=== PATIENT | female | born 1990 | race Caucasian/White ===

== ENCOUNTER → 2017-06-21 | Outpatient (CLI) | payer OTHER ==
--- NOTE | 2017-06-21 09:03 | DIAGNOSTIC IMAGING REPORT ---
ABDOMINAL ULTRASOUND COMPLETE HISTORY: Generalized abdominal pain. Bloating.. COMPARISON: None. FINDINGS: Pancreas: The pancreas demonstrates a normal echotexture. Liver: Unremarkable. Gallbladder: No gallbladder wall thickening. No gallstones. CBD: 3 mm. Kidneys: No hydronephrosis. Spleen: Mildly enlarged measuring 14 cm in length. Aorta: Normal in caliber. IVC: Patent. IMPRESSION: Mild splenomegaly. Electronically signed by: Timur Howell M.D. 06/21/2017 9:02 AM Dictated Date/Time: 06/21/2017 9:00 AM
== END | disposition home or self-care (01) ==
LOC: C.ULTR 07:56
PROVIDERS: ATTEND Internal Medicine Gastroenterology
DX: R14.0 Abdominal distension (gaseous) (principal); R19.7 Diarrhea, unspecified; K62.5 Hemorrhage of anus and rectum

== ENCOUNTER 2019-04-01 17:01 | Observation (INO) ==
[2019-04-01] MEDS ORDERED: SODIUM CHLORIDE 0.9% 1000ML 1,000 ML IV SCH (19:00)
--- NOTE | 2019-04-01 19:11 | Emergency Department Note ---
ED Provider Note CHIEF COMPLAINT: Chest pain, palpitations, near syncope HISTORY OF PRESENTING ILLNESS: This is a 28-year-old female who presents to the emergency department by private vehicle with complaint of palpitations, shortness of breath and near syncope. Patient states that she had some periods of lightheadedness yesterday, but she did not pass out. Today at 4 PM while sitting in a meeting at work she developed a sudden onset of feeling like her h eart was racing, she states she got tunnel vision and felt lightheaded like she was about to pass out. She has been having intermittent periods of feeling like this and coming close to passing out several times. She states that she feels her palpitations have somewhat improved, but she is still feeling lightheaded. She states that she has been feeling shortness of breath with the episode and al so had some pain in her right chest and shoulder area and around her breast that she describes as tightness, seems to come and go, and currently rates it as 4/10. She denies any nausea or vomiting, abdominal pain, back pain, urinary complaints, or unusual rash. She notes that she has been having some similar symptoms over the past several months that were attributed to stress and panic attacks that were attributed to her control. She states she stopped the control about a month ago and feels that the panic attacks did improve. She states her symptoms today were much worse than any of her previous episodes, and she never felt like she was going to pass out before. She denies any recent travel, leg pain or swelling, cough or hemoptysis, or history of blood clots. She does note that she had some leg cramping about a month ago and she had an ultrasound which was negative for blood clot. She has been off of her control for about a month. She denies any previous history of anxiety or panic disorders. REVIEW OF SYSTEMS: A complete 10 point review of systems was reviewed with the patient with pertinent positives and negatives as per history of present illness. All else were negative. PAST MEDICAL HISTORY: No significant past medical or surgical history SOCIAL HISTORY: Lives at home with her , she denies tobacco use, alcohol or recreational drug use ALLERGIES: No known allergies PHYSICAL EXAM: CONSTITUTIONAL: Pleasant and cooperative. No acute distress. Mildly dehydrated, but otherwise well appearing and well nourished. HEENT: Normocephalic, atraumatic. PERRL, EOMI. Pharynx normal. Tacky mucous membranes. NECK: Supple, full active range of motion without discomfort. No cervical adenopathy. RESPIRATORY: Clear to auscultation bilaterally with no wheezing, crackles, rhonchi or stridor. Equal expansion bilaterally. CARDIOVASCULAR: Regular rate and rhythm with no murmurs, rubs or gallops. Normal peripheral perfusion, 2+ distal pulses in all 4 extremities. No pitting edema. GASTROINTESTINAL: Soft, nontender, nondistended. No palpable masses or HSM. Bowel sounds present in all quadrants. No CVA tenderness bilaterally. MUSCULOSKELETAL: No calf tenderness or swelling, negative Homans sign bilaterally. Full range of motion of all joints without discomfort. INTEGUMENTARY: No rash or other significant dermatologic conditions noted. NEUROLOGIC: Alert and oriented X 4 with normal affect. Normal strength and sensation in all 4 extremities. Normal speech. Normal gait observed. ED COURSE AND MEDICAL DECISION MAKING: CC: Patient presenting with complaint of chest pain, palpitations, near syncope DIFFERENTIAL DIAGNOSIS: Includes, but not limited to cardiac dysrhythmia, acute coronary syndrome, pulmonary embolism, pneumothorax, pericarditis, myocarditis, anxiety, pneumonia, electrolyte abnormality, Lyme disease/carditis, among others. INTERPRETATION OF LABS: Leukocytosis with left shift, no anemia, normal platelets, no significant electrolyte abnormalities, normal renal function, normal liver enzymes. Negative troponin. Slightly elevated d-dimer. Elevated ESR with a normal CRP. Negative serum . TSH within normal limits. UA consistent with mild dehydration, otherwise negative. Lyme IgG/IgM negative. IMAGING: SINGLE VIEW CHEST CLINICAL HISTORY: Atypical chest pain. Dyspnea. FINDINGS: An AP, portable, upright chest radiograph is obtained. No prior studies are available for comparison at the time of dictation. The cardiomediastinal silhouette is unremarkable. The lungs and pleural spaces are clear. No pneumothorax is seen. The bony thorax is grossly intact. IMPRESSION: No active disease in the chest. ----- CT ANGIOGRAM OF THE CHEST CLINICAL HISTORY: Dyspnea. Elevated d-dimer. COMPARISON STUDY: Chest x-ray dated 04/01/2019. TECHNIQUE: Following the IV administration of 64 cc of Optiray 320, CT angiogram of the chest was performed from the upper abdomen to the thoracic inlet ut ilizing the pulmonary embolus protocol. Images are reviewed in the axial, sagittal, and coronal planes. 3-D MIPS images are created and assessed. IV contrast was administered without complication. A dose lowering technique was utilized adhering to the principles of ALARA. CT DOSE: 383.89 mGy.cm FINDINGS: Thyroid: Imaged portions of the thyroid gland are normal in size and attenuation. Thoracic aorta: The thoracic aorta is normal in caliber and demonstrates standard 3-vessel arch anatomy. No dissection is seen. Pulmonary vasculature: The pulmonary trunk is normal in caliber. There are no filling defects identified in main, lobar, or proximal segmental pulmonary branches to suggest pulmonary embolus. Evaluation of the peripheral vessels is degraded by suboptimal contrast opacification. Heart: The heart is normal in size and without pericardial effusion. Lungs and pleural spaces: The lungs and pleural spaces are clear noting mild bibasilar atelectasis. The trachea and central airways are patent. Mediastinum: Residual thymic tissue is noted in the anterior mediastinum. There is no mediastinal lymphadenopathy. Christin: Clear. Axillae: There is no axillary lymphadenopathy. Upper abdomen: Partially visualized upper abdominal viscera is within normal limits. Skeletal structures: No lytic or blastic bony lesions are seen. IMPRESSION: 1. There is no evidence of pulmonary embolus in the main, lobar, or proximal segmental pulmonary arteries. 2. The lungs are clear. EKG: Shows sinus rhythm with sinus arrhythmia and first-degree AV block, with a rate of 86 bpm, normal QRS, no ST or T wave abnormalities, no ectopy by my interpretation. No previous EKG available for comparison. MEDICATION RECONCILIATION: I attest that I have personally reviewed the patient's current medication list. INITIAL VITAL SIGNS REVIEW: I reviewed the patient's initial vital signs and interpret them as follows: T: Afebrile; BP: Hypertensive; HR: Tachycardic; RR: Within normal limits; Pulse Ox: Within normal limits on room air. Blood pressure screening: The patient was found to have an elevated blood pressure and was referred to the inpatient team for further management. MDM SUMMARY: Patient was evaluated at bedside, history and physical exam performed. Patient is alert and oriented, in no acute distress, but appears to feel unwell, laying flat in the stretcher. Patient is noted to be mildly tachycardic, but vital signs are otherwise stable. She is not febrile. She does appear mildly dehydrated clinically. Lungs are clear, heart sounds normal with normal distal pulses in all 4 extremities. No calf swelling or tenderness. EKG reviewed at bedside, noting first-degree AV block. No acute ischemic changes. Orders were placed at bedside for labs, d-dimer and troponin, TSH, Lyme, IV fluid bolus for hydration, chest x-ray to evaluate for cardiopulmonary disorder. Patient discussed with Dr. Topete, who agrees with my assessment, plan, and disposition. Labs and imaging reviewed as above, labs are notable for a leukocytosis with left shift, this is of unclear etiology. ESR and CRP added, ESR is elevated and CRP is normal. Lyme is negative. Troponin is negative. D-dimer is mildly elevated, therefore a CT was ordered. Chest x-ray is clear. CTA of the chest was negative for pulmonary embolus or any other acute abnormality. Patient has been noted to demonstrate possible developing second-degree AV block, with frequent dropped beats, concerning for possible type II. Given the patient's EKG changes, intermittent chest pain and near syncope, I felt that she warranted hospital admission for further observation and evaluation of her symptoms. I did speak on the phone with Dr. Ingram, cardiology, regarding the patient's symptoms and EKG findings. He did not feel the patient warranted an emergent echocardiogram, but felt it was reasonable for her to be monitored and have this performed tomorrow. I spoke with Dr. Schafer, [facility] Hospitalist, who agrees to evaluate the patient for admission/observation. Patient reassessed multiple times throughout ED stay, she has remained hemodynamically stable and her tachycardia is improved after IV fluids. She continues to complain of intermittent chest tightness, but is currently comfortable. The patient and her were updated on all results and plan for admission, all questions were answered to the best of my ability at this time. They verbalized understanding and were agreeable to this plan. Patient was stable at time of admission. The chart was completed utilizing [employer] Speech voice recognition software. Grammatical errors, random word insertions, pronoun errors, and incomplete sentences are an occasional consequence of this system due to software limitations, ambient noise, and hardware issues. Any formal questions or concerns about the content, text, or information contained within the body of this dictation should be directly addressed to the nurse practitioner for cla rification. Impression & Plan Palpitations, Chest pain, Near syncope, AV block Past Med/Surg History Social History Feels Safe at Home: Yes Smoking Status: Never smoker Results & Data Vital Signs Vital Signs - 24 hr 04/01/19 17:11 04/01/19 19:45 04/01/19 20:42 Temperature 36.4 C L Temperature Source Oral Pulse Rate 100 H Pulse Rate [Apical] 90 90 Respiratory Rate 18 18 16 Respiratory Effort / Characteristics Non-Labored Respiratory Depth Normal Normal Blood Pressure 153/80 H Blood Pressure [Right Arm] 145/99 H 139/96 Blood Pressure Mean 104 Blood Pressure Mean [Right Arm] 114 110 Blood Pressure Position Sitting Pulse Oximetry 98 100 100 Oxygen Delivery Method Room Air Room Air Sepsis Recent Fever Within 48 Hours No Sepsis New/Unexplained Change in Mental Status No Sepsis Action Taken by Nursing No Action Required 04/01/19 22:47 04/02/19 00:00 04/02/19 01:00 Temperature Temperature Source Pulse Rate Pulse Rate [Apical] 84 89 81 Respiratory Rate 20 18 18 Respiratory Effort / Characteristics Respiratory Depth Normal Blood Pressure Blood Pressure [Right Arm] 184/94 H 160/91 H 135/84 Blood Pressure Mean Blood Pressure Mean [Right Arm] 124 114 101 Blood Pressure Position Pulse Oximetry 98 98 99 Oxygen Delivery Method Room Air Room Air Sepsis Recent Fever Within 48 Hours Sepsis New/Unexplained Change in Mental Status Sepsis Action Taken by Nursing Laboratory Data Result diagrams: 04/01/19 19:02 04/01/19 19:02 Lab Results 04/01/19 04/01/19 04/01/19 Range/Units 19:02 19:02 19:02 WBC 16.98 H (4.8-10.8) K/uL RBC 4.80 (4.2-5.4) M/uL Hgb 13.9 (12.0-16.0) g/dL Hct 40.1 (37-47) % MCV 83.5 (80-100) fL MCH 29.0 (25-34) pg MCHC 34.7 (32-36) g/dL RDW Std Deviation 38.7 (36.4-46.3) fL RDW Coeff of Mattie 12.9 (11.5-14.5) % Plt Count 392 (130-400) K/uL MPV 8.9 (7.4-10.4) fL Immature Gran % (Auto) 0.5 % Neut % (Auto) 75.0 % Lymph % (Auto) 19.4 % [place] % (Auto) 4.8 % Eos % (Auto) 0.2 % Baso % (Auto) 0.1 % Immature Gran # (Auto) 0.09 H (0.00-0.02) K/uL Neut # (Auto) 12.73 H (1.4-6.5) K/uL Lymph # (Auto) 3.29 (1.2-3.4) K/uL [place] # (Auto) 0.81 H (0.11-0.59) K/uL Eos # (Auto) 0.04 (0-0.5) K/uL Baso # (Auto) 0.02 (0-0.2) K/uL ESR (0-21) mm/hr D-Dimer 610 H* (0-500) ug/L FEU Sodium 138 (136-145) mmol/L Potassium 3.4 L (3.5-5.1) mmol/L Chloride 106 (98-107) mmol/L Carbon Dioxide 25 (21-32) mmol/L Anion Gap 7.0 (3-11) BUN 10 (7-18) mg/dl Creatinine 0.75 (0.6-1.2) mg/dl Est Cr Clr Drug Dosing Not Reportable Est GFR ( Amer) 127.5 Est GFR (Non-Af Amer) 110.0 BUN/Creatinine Ratio 13.1 (10-20) Glucose 90 (70-99) mg/dl Calcium 9.6 (8.5-10.1) mg/dl Magnesium 2.1 (1.8-2.4) mg/dl Total Bilirubin 0.3 (0.2-1) mg/dl AST 15 (15-37) U/L ALT 24 (12-78) U/L Alkaline Phosphatase 92 (45-117) U/L Troponin I < 0.015 (0-0.045) ng/ml C-Reactive Protein < 0.29 (0-0.29) mg/dl Total Protein 8.7 H (6.4-8.2) gm/dl Albumin 3.9 (3.4-5.0) gm/dl Globulin 4.8 H (2.5-4.0) gm/dl Albumin/Globulin Ratio 0.8 L (0.9-2) TSH 2.360 (0.300-4.500) uIu/ml HCG, Qual (Negative) Urine Color Urine Appearance (Clear) Urine pH (4.5-7.5) Ur Specific [place] (1.000-1.030) Urine Protein (Negative) Urine Glucose (UA) (Negative) Urine Ketones (Negative) Urine Blood (Negative) Urine Nitrite (Negative) Urine Bilirubin (Negative) Urine Urobilinogen (Negative) Ur Leukocyte Esterase (Negative) Urine WBC (Auto) (0-5) /hpf Urine RBC (Auto) (0-4) /hpf U Hyaline Cast (Auto) (0-5) /lpf U Epithel Cells (Auto) (0-5) /lpf Urine Bacteria (Auto) (Negative) Lyme Disease IgG Ab (Negative) Lyme Disease IgM Ab (Negative) 04/01/19 04/01/19 04/01/19 Range/Units 19:02 19:02 19:55 WBC (4.8-10.8) K/uL RBC (4.2-5.4) M/uL Hgb (12.0-16.0) g/dL Hct (37-47) % MCV (80-100) fL MCH (25-34) pg MCHC (32-36) g/dL RDW Std Deviation (36.4-46.3) fL RDW Coeff of Mattie (11.5-14.5) % Plt Count (130-400) K/uL MPV (7.4-10.4) fL Immature Gran % (Auto) % Neut % (Auto) % Lymph % (Auto) % [place] % (Auto) % Eos % (Auto) % Baso % (Auto) % Immature Gran # (Auto) (0.00-0.02) K/uL Neut # (Auto) (1.4-6.5) K/uL Lymph # (Auto) (1.2-3.4) K/uL [place] # (Auto) (0.11-0.59) K/uL Eos # (Auto) (0-0.5) K/uL Baso # (Auto) (0-0.2) K/uL ESR 43 H (0-21) mm/hr D-Dimer (0-500) ug/L FEU Sodium (136-145) mmol/L Potassium (3.5-5.1) mmol/L Chloride (98-107) mmol/L Carbon Dioxide (21-32) mmol/L Anion Gap (3-11) BUN (7-18) mg/dl Creatinine (0.6-1.2) mg/dl Est Cr Clr Drug Dosing Est GFR ( Amer) Est GFR (Non-Af Amer) BUN/Creatinine Ratio (10-20) Glucose (70-99) mg/dl Calcium (8.5-10.1) mg/dl Magnesium (1.8-2.4) mg/dl Total Bilirubin (0.2-1) mg/dl AST (15-37) U/L ALT (12-78) U/L Alkaline Phosphatase (45-117) U/L Troponin I (0-0.045) ng/ml C-Reactive Protein Cancelled (0-0.29) mg/dl Total Protein (6.4-8.2) gm/dl Albumin (3.4-5.0) gm/dl Globulin (2.5-4.0) gm/dl Albumin/Globulin Ratio (0.9-2) TSH (0.300-4.500) uIu/ml HCG, Qual (Negative) Urine Color Urine Appearance (Clear) Urine pH (4.5-7.5) Ur Specific [place] (1.000-1.030) Urine Protein (Negative) Urine Glucose (UA) (Negative) Urine Ketones (Negative) Urine Blood (Negative) Urine Nitrite (Negative) Urine Bilirubin (Negative) Urine Urobilinogen (Negative) Ur Leukocyte Esterase (Negative) Urine WBC (Auto) (0-5) /hpf Urine RBC (Auto) (0-4) /hpf U Hyaline Cast (Auto) (0-5) /lpf U Epithel Cells (Auto) (0-5) /lpf Urine Bacteria (Auto) (Negative) Lyme Disease IgG Ab Negative (Negative) Lyme Disease IgM Ab Negative (Negative) 04/01/19 04/01/19 Range/Units 21:35 21:35 WBC (4.8-10.8) K/uL RBC (4.2-5.4) M/uL Hgb (12.0-16.0) g/dL Hct (37-47) % MCV (80-100) fL MCH (25-34) pg MCHC (32-36) g/dL RDW Std Deviation (36.4-46.3) fL RDW Coeff of Mattie (11.5-14.5) % Plt Count (130-400) K/uL MPV (7.4-10.4) fL Immature Gran % (Auto) % Neut % (Auto) % Lymph % (Auto) % [place] % (Auto) % Eos % (Auto) % Baso % (Auto) % Immature Gran # (Auto) (0.00-0.02) K/uL Neut # (Auto) (1.4-6.5) K/uL Lymph # (Auto) (1.2-3.4) K/uL [place] # (Auto) (0.11-0.59) K/uL Eos # (Auto) (0-0.5) K/uL Baso # (Auto) (0-0.2) K/uL ESR (0-21) mm/hr D-Dimer (0-500) ug/L FEU Sodium (136-145) mmol/L Potassium (3.5-5.1) mmol/L Chloride (98-107) mmol/L Carbon Dioxide (21-32) mmol/L Anion Gap (3-11) BUN (7-18) mg/dl Creatinine (0.6-1.2) mg/dl Est Cr Clr Drug Dosing Est GFR ( Amer) Est GFR (Non-Af Amer) BUN/Creatinine Ratio (10-20) Glucose (70-99) mg/dl Calcium (8.5-10.1) mg/dl Magnesium (1.8-2.4) mg/dl Total Bilirubin (0.2-1) mg/dl AST (15-37) U/L ALT (12-78) U/L Alkaline Phosphatase (45-117) U/L Troponin I (0-0.045) ng/ml C-Reactive Protein (0-0.29) mg/dl Total Protein (6.4-8.2) gm/dl Albumin (3.4-5.0) gm/dl Globulin (2.5-4.0) gm/dl Albumin/Globulin Ratio (0.9-2) TSH (0.300-4.500) uIu/ml HCG, Qual Negative (Negative) Urine Color Yellow Urine Appearance Clear (Clear) Urine pH 7.0 (4.5-7.5) Ur Specific [place] 1.034 H (1.000-1.030) Urine Protein Negative (Negative) Urine Glucose (UA) Negative (Negative) Urine Ketones 1+ H (Negative) Urine Blood Trace H (Negative) Urine Nitrite Negative (Negative) Urine Bilirubin Negative (Negative) Urine Urobilinogen Negative (Negative) Ur Leukocyte Esterase Negative (Negative) Urine WBC (Auto) 0 (0-5) /hpf Urine RBC (Auto) 0-4 (0-4) /hpf U Hyaline Cast (Auto) 0 (0-5) /lpf U Epithel Cells (Auto) 20-30 H (0-5) /lpf Urine Bacteria (Auto) Negative (Negative) Lyme Disease IgG Ab (Negative) Lyme Disease IgM Ab (Negative) Administered Medications Ioversol (Optiray 320 125ml) 64 ml IV ONCE PRN PRN Reason: Interaction Checking Stop: 04/05/19 20:33 Last Admin: 04/01/19 20:37 Dose: 64 ml Documented by: [id number] Discontinued Medications Sodium Chloride (Nss 1000ml) 1,000 mls @ 999 mls/hr IV .[id number] Stop: 04/01/19 20:00 Last Infusion: 04/01/19 21:38 Dose: 0 mls/hr Documented by: [id number] Admin: 04/01/19 19:45 Dose: 999 mls/hr Documented by: [id number] Discharge Plan Visit Data Chief Complaint: Arrhythmia/Palpitations Stated Complaint: PALPITATIONS,SOB,FEELING FAINT ED Provider: Binh Topete ED Midlevel Provider: Lisa Phillips Discharge Problem: Palpitations, Chest pain, Near syncope, AV block Patient Disposition: Admitted As Inpatient Condition: Good Forms Stand Alone Forms: [facility] [employer] [facility], Important Visit Information Prescriptions Prescriptions: No Action No Known Home Medications RF: 0 Referrals Referrals: Bertha Rivera CRNP [Primary Care Provider] - Discharge Problem: Chest pain Qualifiers: Chest pain type: unspecified Qualified Code(s): R07.9 - Chest pain, unspecified
[2019-04-01 19:22] LABS: Basophils # (auto) 0.02 K/uL (0-0.2); Basophils % (auto) 0.1 %; Eosinophils # (auto) 0.04 K/uL (0-0.5); Eosinophils % (auto) 0.2 %; Hematocrit (blood only) 40.1 % (37-47); Hemoglobin 13.9 g/dL (12.0-16.0); Immature Granulocytes # (auto) 0.09 K/uL (0.00-0.02); Immature Granulocytes % (auto) 0.5 %; Lymphocytes # (auto) 3.29 K/uL (1.2-3.4); Lymphocytes % (auto) 19.4 %; Mean Corpuscular Hgb Conc 34.7 g/dL (32-36); Mean Corpuscular Volume 83.5 fL (80-100); Mean Platelet Volume 8.9 fL (7.4-10.4); Monocytes # (auto) 0.81 K/uL (0.11-0.59); Monocytes % (auto) 4.8 %; Neutrophils # (auto) 12.73 K/uL (1.4-6.5); Platelet Count 392 K/uL (130-400); RDW Coefficient of Variation 12.9 % (11.5-14.5); RDW Standard Deviation 38.7 fL (36.4-46.3); White Blood Count 16.98 K/uL (4.8-10.8)
--- NOTE | 2019-04-01 19:26 | XRay Report ---
SINGLE VIEW CHEST CLINICAL HISTORY: Atypical chest pain. Dyspnea. FINDINGS: An AP, portable, upright chest radiograph is obtained. No prior studies are available for c omparison at the time of dictation. The cardiomediastinal silhouette is unremarkable. The lungs and pleural spaces are clear. No pneumothorax is seen. The bony thorax is grossly intact. IMPRESSION: No active disease in the chest. ACT 112: Negative or not required by law. Electronically signed by: Robert Andre M.D. 04/01/2019 7:25 PM
[2019-04-01 19:36] LABS: D Dimer 610 ug/L FEU (0-500)
[2019-04-01 20:15] LABS: Alanine Aminotransferase 24 U/L (12-78); Albumin Level 3.9 gm/dl (3.4-5.0); Aspartate Aminotransferase 15 U/L (15-37); BUN Creatinine Ratio 13.1 (10-20); Blood Urea Nitrogen 10 mg/dl (7-18); Calcium 9.6 mg/dl (8.5-10.1); Carbon Dioxide 25 mmol/L (21-32); Chloride 106 mmol/L (98-107); Est GFR (African American) 127.5; Glucose 90 mg/dl (70-99); Magnesium 2.1 mg/dl (1.8-2.4); Potassium 3.4 mmol/L (3.5-5.1); Sodium 138 mmol/L (136-145)
[2019-04-01 20:24] LABS: C Reactive Protein < 0.29 mg/dl (0-0.29)
[2019-04-01 20:26] LABS: Albumin Globulin Ratio 0.8 (0.9-2); Alkaline Phosphatase 92 U/L (45-117); Bilirubin,Total 0.3 mg/dl (0.2-1); Globulin 4.8 gm/dl (2.5-4.0); Total Protein 8.7 gm/dl (6.4-8.2); Troponin I < 0.015 ng/ml (0-0.045)
[2019-04-01] MEDS ORDERED: OPTIRAY 320 125ml IV PRN (20:34)
[2019-04-01 20:57] LABS: Lyme Ab IgG w/WB Rflx Negative (Negative); Lyme Ab IgM w/WB Rflx Negative (Negative)
--- NOTE | 2019-04-01 21:00 | CT Scan Report ---
CT ANGIOGRAM OF THE CHEST CLINICAL HISTORY: Dyspnea. Elevated d-dimer. COMPARISON STUDY: Chest x-ray dated 04/01/2019. TECHNIQUE: Following the IV administration of 64 cc of Optiray 320, CT angiogram of the chest was per formed from the upper abdomen to the thoracic inlet utilizing the pulmonary embolus protocol. Images are reviewed in the axial, sagittal, and coronal planes. 3-D MIPS images are created and assessed. IV contrast was administered without complication. A dose lowering technique was utilized adhering to the principles of ALARA. CT DOSE: 383.89 mGy.cm FINDINGS: Thyroid: Imaged portions of the thyroid gland are normal in size and attenuation. Thoracic aorta: The thoracic aorta is normal in caliber and demonstrates standard 3-vessel arch anato my. No dissection is seen. Pulmonary vasculature: The pulmonary trunk is normal in caliber. There are no filling defects identif ied in main, lobar, or proximal segmental pulmonary branches to suggest pulmonary embolus. Evaluation of the peripheral vessels is degraded by suboptimal contrast opacification. Heart: The heart is normal in size and without pericardial effusion. Lungs and pleural spaces: The lungs and pleural spaces are clear noting mild bibasilar atelectasis. T he trachea and central airways are patent. Mediastinum: Residual thymic tissue is noted in the anterior mediastinum. There is no mediastinal lym phadenopathy. Christin: Clear. Axillae: There is no axillary lymphadenopathy. Upper abdomen: Partially visualized upper abdominal viscera is within normal limits. Skeletal structures: No lytic or blastic bony lesions are seen. IMPRESSION: 1. There is no evidence of pulmonary embolus in the main, lobar, or proximal segmental pulmonary dee j carlos. 2. The lungs are clear. ACT 112: Negative or not required by law. Electronically signed by: Robert Andre M.D. 04/01/2019 8:59 PM
[2019-04-01 21:59] LABS: Appearance Urine Clear (Clear); Bacteria Urine Automated Negative (Negative); Bilirubin Urine Negative (Negative); Blood Urine Trace (Negative); Cast Urine Automated 0 /lpf (0-5); Color Urine Yellow; Epithelial Cell Urine Auto 20-30 /lpf (0-5); Glucose Urine UA Negative (Negative); Ketones Urine 1+ (Negative); Leukocyte Esterase Urine Negative (Negative); Nitrite Urine Negative (Negative); Protein Urine Negative (Negative); RBC Urine Automated 0-4 /hpf (0-4); Specific Gravity Urine 1.034 (1.000-1.030); Urobilinogen Urine Negative (Negative); WBC Urine Automated 0 /hpf (0-5)
[2019-04-01 22:11] LABS: Pregnancy Test, Serum Negative (Negative)
--- NOTE | 2019-04-01 23:54 | History & Physical Report ---
Date of Service April 01, 2019 Assessment & Plan (1) Palpitations: 28 yo F with no significant PMH presents with concerns of palpitations, SOB, and near syncope found to have 1st degree AV block on EKG. Palpitations/Near Syncope/SOB -admit to telemetry -asymptomatic at present -EKG: Sinus rhythm with sinus arrhythmia and first-degree AV block. Normal QRS, no ST or T wave abnormalities (official read pending). No previous EKG available for comparison. -initial trop neg. Will cont trend q6h for r/o -ECHO in AM -Appreciate Cardiology consult -nitroglycerin prn for CP -AM Lipid Panel, A1C -TSH WNL -maybe a component of anxiety-related Elevated D-Dimer -unclear etiology -CXR: No active disease in the chest -Chest CTA: No evidence of pulmonary embolus in the main, lobar, or proximal segmental pulmonary arteries -Venous Dopplers ordered give some complaints of mild calf tenderness FEN/GI: HH Diet DVT Prophylaxis: Ambulation. Low Risk Full Code Dispo: PCU Tele History of Present Illness Chief Complaint: palpitations, near syncope Primary Care Provider: MADELINE Melgar 28 yo F with PMH IBS presents to [facility] with concerns of palpitations and SOB. Yesterday, pt was in a meeting at work and had an episode of near syncope that was preceded by some tunnel vision around 12:30 after pt had already eaten lunch. Pt felt lightheaded and had some associated palpitations. This would last for about 10 min and self resolve. These palpitations are described as a chest tightness near her R clavicle/breast area and at times associated R biceps cramping. Alleviated by going outside and getting fresh air. No known exacerbations, seems to happen at random. This happened about 3 times yesterday. Last such similar occurrence was in Dec 2018. At that time, pt presented to [facility] and there was some concern over calf pain, which prompted venous doppler study (done at [facility]) that ended up being negative. Pt attributes Dec 2018 incident to stress/anxiety from wedding planning and concerns about her nuvaring, both of which have passed now as she got and is currently on BC. Does not feel anxious or has any recent stressors. Pt had another episode today, which prompted ER presentation, and again in the car ride over to the ED. Pt notes that her R hand and b/l legs were also swollen, but had improved by the time of examination. Associated fatigue and nausea, but pt otherwise denies emesis, TRAVIS, diaphoresis, PND, PRINCE, abd pain, urinary sxs, recent travel or prolonged immobilization. Pt has no other acute concerns or complaints. EKG: Sinus rhythm with sinus arrhythmia and first-degree AV block. Normal QRS, no ST or T wave abnormalities. No previous EKG available for comparison CXR: No active disease in the chest Chest CTA: No evidence of pulmonary embolus in the main, lobar, or proximal segmental pulmonary arteries. ER Course: NSS Family Hx: Father with DM2 (dx last year), Mother with Colon Ca, Grandmother with CHF, Grandmother with Lung Ca and subsequent 5-6 heart attacks after that diagnosis made Social: Denies Tobacco use. Social Alcohol use. Rare MJ use otherwise no illicit drugs. Surgical: Unremarkable Allergies Allergy/AdvReac Type Severity Reaction Status Date / Time No Known Allergies Allergy Verified 04/01/19 22:11 Home Medications Home Medications Medication Instructions Recorded Confirmed Type No Known Home Medications 04/01/19 04/01/19 History Past Med/Surg History Social History Preferred Language: Singaporean Communication Ability: Effective Home Economist Required: No Beliefs That Will Affect Care: None Current Living Situation: Spouse Feels Safe at Home: Yes Safety Concerns: Feels Safe At This Time Smoking Status: Never smoker Hx Alcohol Use: Yes Hx Substance Use: No Review of Systems Review of Systems: All systems reviewed & are unremarkable except as noted in HPI & below Physical Exam Constitutional: WD/WN, vitals as above Eyes: PERRL, conjunctivae normal, anicteric sclerae ENMT: external ear and nose normal, oropharynx normal Respiratory: normal respiratory effort, lungs clear to auscultation Cardiovascular: RRR, no murmur, no edema Chest (Breasts): Additional Comments: pain not reproducible to palpation Gastrointestinal (Abdomen): normal bowel sounds, soft, nontender, no hepatosplenomegaly Skin: no rashes, warm and dry Psychiatric: A+Ox3, euthymic affect Results & Data Vital Signs (Past 12 Hours) Vital Signs Temp Pulse Pulse Resp BP BP Pulse Ox 04/01/19 22:47 84 20 184/94 H 98 04/01/19 20:42 90 16 139/96 100 04/01/19 19:45 90 18 145/99 H 100 04/01/19 17:11 36.4 C L 100 H 18 153/80 H 98 Laboratory Results Laboratory Results - last 24 hr 04/01/19 04/01/19 04/01/19 19:02 19:02 19:02 WBC 16.98 H RBC 4.80 Hgb 13.9 Hct 40.1 MCV 83.5 MCH 29.0 MCHC 34.7 RDW Std Deviation 38.7 RDW Coeff of Mattie 12.9 Plt Count 392 MPV 8.9 Immature Gran % (Auto) 0.5 Neut % (Auto) 75.0 Lymph % (Auto) 19.4 [place] % (Auto) 4.8 Eos % (Auto) 0.2 Baso % (Auto) 0.1 Immature Gran # (Auto) 0.09 H Neut # (Auto) 12.73 H Lymph # (Auto) 3.29 [place] # (Auto) 0.81 H Eos # (Auto) 0.04 Baso # (Auto) 0.02 ESR D-Dimer 610 H* Sodium 138 Potassium 3.4 L Chloride 106 Carbon Dioxide 25 Anion Gap 7.0 BUN 10 Creatinine 0.75 Est Cr Clr Drug Dosing Not Reportable Est GFR ( Amer) 127.5 Est GFR (Non-Af Amer) 110.0 BUN/Creatinine Ratio 13.1 Glucose 90 Calcium 9.6 Magnesium 2.1 Total Bilirubin 0.3 AST 15 ALT 24 Alkaline Phosphatase 92 Troponin I < 0.015 C-Reactive Protein < 0.29 Total Protein 8.7 H Albumin 3.9 Globulin 4.8 H Albumin/Globulin Ratio 0.8 L TSH 2.360 HCG, Qual Urine Color Urine Appearance Urine pH Ur Specific [place] Urine Protein Urine Glucose (UA) Urine Ketones Urine Blood Urine Nitrite Urine Bilirubin Urine Urobilinogen Ur Leukocyte Esterase Urine WBC (Auto) Urine RBC (Auto) U Hyaline Cast (Auto) U Epithel Cells (Auto) Urine Bacteria (Auto) Lyme Disease IgG Ab Lyme Disease IgM Ab 04/01/19 04/01/19 04/01/19 19:02 19:02 19:55 WBC RBC Hgb Hct MCV MCH MCHC RDW Std Deviation RDW Coeff of Mattie Plt Count MPV Immature Gran % (Auto) Neut % (Auto) Lymph % (Auto) [place] % (Auto) Eos % (Auto) Baso % (Auto) Immature Gran # (Auto) Neut # (Auto) Lymph # (Auto) [place] # (Auto) Eos # (Auto) Baso # (Auto) ESR 43 H D-Dimer Sodium Potassium Chloride Carbon Dioxide Anion Gap BUN Creatinine Est Cr Clr Drug Dosing Est GFR ( Amer) Est GFR (Non-Af Amer) BUN/Creatinine Ratio Glucose Calcium Magnesium Total Bilirubin AST ALT Alkaline Phosphatase Troponin I C-Reactive Protein Cancelled Total Protein Albumin Globulin Albumin/Globulin Ratio TSH HCG, Qual Urine Color Urine Appearance Urine pH Ur Specific [place] Urine Protein Urine Glucose (UA) Urine Ketones Urine Blood Urine Nitrite Urine Bilirubin Urine Urobilinogen Ur Leukocyte Esterase Urine WBC (Auto) Urine RBC (Auto) U Hyaline Cast (Auto) U Epithel Cells (Auto) Urine Bacteria (Auto) Lyme Disease IgG Ab Negative Lyme Disease IgM Ab Negative 04/01/19 04/01/19 21:35 21:35 WBC RBC Hgb Hct MCV MCH MCHC RDW Std Deviation RDW Coeff of Mattie Plt Count MPV Immature Gran % (Auto) Neut % (Auto) Lymph % (Auto) [place] % (Auto) Eos % (Auto) Baso % (Auto) Immature Gran # (Auto) Neut # (Auto) Lymph # (Auto) [place] # (Auto) Eos # (Auto) Baso # (Auto) ESR D-Dimer Sodium Potassium Chloride Carbon Dioxide Anion Gap BUN Creatinine Est Cr Clr Drug Dosing Est GFR ( Amer) Est GFR (Non-Af Amer) BUN/Creatinine Ratio Glucose Calcium Magnesium Total Bilirubin AST ALT Alkaline Phosphatase Troponin I C-Reactive Protein Total Protein Albumin Globulin Albumin/Globulin Ratio TSH HCG, Qual Negative Urine Color Yellow Urine Appearance Clear Urine pH 7.0 Ur Specific [place] 1.034 H Urine Protein Negative Urine Glucose (UA) Negative Urine Ketones 1+ H Urine Blood Trace H Urine Nitrite Negative Urine Bilirubin Negative Urine Urobilinogen Negative Ur Leukocyte Esterase Negative Urine WBC (Auto) 0 Urine RBC (Auto) 0-4 U Hyaline Cast (Auto) 0 U Epithel Cells (Auto) 20-30 H Urine Bacteria (Auto) Negative Lyme Disease IgG Ab Lyme Disease IgM Ab Medications Administered Current Inpatient Medications Ioversol (Optiray 320 125ml) 64 ml IV ONCE PRN PRN Reason: Interaction Checking Stop: 04/05/19 20:33 Last Admin: 04/01/19 20:37 Dose: 64 ml Documented by: Code Status & VTE Plan Code Status FULL Supervising Physician Co-Signing Physician Notes Patient was seen and examined by me personally. I reviewed the chart, the orders and discussed the case in detail with Dr. Danish Alexandre DO. I read this H&P and agree with its contents to entirety. Resident Activity Tracking Resident Involvement: Resident Care Provided Care Provided: Adult Hospital Medicine
[2019-04-02] MEDS ORDERED: NITROGLYCERIN SL 0.4 MG/TAB TAB SL PRN (03:04)
[2019-04-02] MEDS ORDERED: ONDANSETRON INJ 2 MG/ML 2 ML VIAL IV PRN (03:04)
[2019-04-02] MEDS ORDERED: ALUMINUM/MAGNESIUM SUSP 30 ML UDC PO PRN (03:04)
[2019-04-02] MEDS ORDERED: ACETAMINOPHEN 325 MG TAB PO PRN (03:04)
[2019-04-02 03:53] LABS: Hematocrit (blood only) 37.8 % (37-47); Hemoglobin 13.1 g/dL (12.0-16.0); Mean Corpuscular Hgb Conc 34.7 g/dL (32-36); Mean Corpuscular Volume 83.8 fL (80-100); Mean Platelet Volume 8.4 fL (7.4-10.4); Platelet Count 389 K/uL (130-400); RDW Standard Deviation 39.2 fL (36.4-46.3); Red Blood Count 4.51 M/uL (4.2-5.4); White Blood Count 13.14 K/uL (4.8-10.8)
[2019-04-02 04:13] LABS: BUN Creatinine Ratio 11.5 (10-20); Blood Urea Nitrogen 7 mg/dl (7-18); Calcium 8.8 mg/dl (8.5-10.1); Carbon Dioxide 29 mmol/L (21-32); Chloride 107 mmol/L (98-107); Creatinine Clr Calc Pharmacy 134.4 ml/min; Est GFR (African American) 142.7; Est GFR (Non-African American) 123.2; Glucose 89 mg/dl (70-99); Potassium 3.8 mmol/L (3.5-5.1); Sodium 138 mmol/L (136-145)
[2019-04-02 04:15] LABS: Basophils # (auto) 0.02 K/uL (0-0.2); Basophils % (auto) 0.2 %; Eosinophils # (auto) 0.11 K/uL (0-0.5); Eosinophils % (auto) 0.8 %; Immature Granulocytes # (auto) 0.06 K/uL (0.00-0.02); Immature Granulocytes % (auto) 0.5 %; Lymphocytes # (auto) 5.15 K/uL (1.2-3.4); Lymphocytes % (auto) 39.2 %; Monocytes # (auto) 0.78 K/uL (0.11-0.59); Monocytes % (auto) 5.9 %; Neutrophils # (auto) 7.02 K/uL (1.4-6.5); Neutrophils % (auto) 53.4 %
[2019-04-02 04:18] LABS: Chol HDL Ratio 4; Cholesterol 153 mg/dl (0-200); HDL Cholesterol 43 mg/dl; LDL Cholesterol Calculated 99 mg/dl; Triglycerides 57 mg/dl (0-150); Troponin I < 0.015 ng/ml (0-0.045); VLDL Cholesterol 11 mg/dl
[2019-04-02 05:55] LABS: Estimated Average Glucose 103 mg/dl; Hemoglobin A1C 5.2 % (4.5-5.6)
--- NOTE | 2019-04-02 06:02 | Billing Data ---
Date of Service April 02, 2019 Coding Level of Care Code 82318 OBS Care - Level 3
--- NOTE | 2019-04-02 07:00 | Ultrasound Report ---
ULTRASOUND BILATERAL LOWER EXTREMITY VENOUS CLINICAL HISTORY: Calf pain. COMPARISON STUDY: No priors. TECHNIQUE: Real-time, grayscale, and color Doppler sonography of the deep veins of the right and left lower extremity was performed from the inguinal crease to the calf. Compression and augmentation wer e utilized. FINDINGS: There is no sonographic evidence of deep venous thrombosis identified in the right or left lower extremity. The common femoral, superficial femoral, and popliteal veins are patent and normally compressible bilaterally. The greater saphenous vein and the profunda femoris vein at the junction w ith the common femoral vein are clear in both legs. The visualized calf veins are patent bilaterally. IMPRESSION: There is no sonographic evidence of deep venous thrombosis identified in the right or lef t lower extremity. ACT 112: Negative or not required by law. Electronically signed by: Robert Andre M.D. 04/02/2019 6:59 AM
[2019-04-02] MEDS ORDERED: POTASSIUM CHLORIDE 20 MEQ TABCR PO SCH (09:00)
--- NOTE | 2019-04-02 10:10 | XCELERA ---
[id number]
--- NOTE | 2019-04-02 10:57 | Electrocardiogram Report ---
Test Reason : Blood Pressure : / mmHG Vent. Rate : 086 BPM Atrial Rate : 086 BPM P-R Int : 272 ms QRS Dur : 082 ms QT Int : 354 ms P-R-T Axes : 050 059 037 degrees QTc Int : 423 ms Sinus rhythm with marked first with 1st degree A-V block Evidence of possible second degree A-V block (last 2 beats) Abnormal ECG No previous ECGs available Confirmed by Rosales Dove ([id number]) on 04/02/2019 10:57:11 AM Referred By: REFERRED SELF Confirmed By:Rosales Dove
--- NOTE | 2019-04-02 11:40 | Cardiology Consultation ---
Date of Consultation April 02, 2019 Assessment & Plan (1) Palpitations: She has had longstanding palpitations which she describes as a rapid heart rate and these of never been recorded. She has had none while she is in the hospital. She has felt that these were panic attacks, by her description that is possible but they occur at situations when she is not necessarily under stress. We will need to record these, will probably need some type of long-term monitoring for that purpose. Meanwhile we will watch for tachycardia on the monitor. (2) AV block: She has AV block identified on arrival here, predominantly first-degree but periods of second-degree as well. This appears to be AV concepcion. The cause is not clear, her Lyme titer is negative, thyroid studies are normal and her echocardiogram is normal. She does not feel them so this could potentially be a longstanding problem, possibly all of her life. I would continue to monitor for now. (3) Syncope, vasovagal: She has a lifelong history of syncope which by her history is classic for vagal reactions. This occurs very frequently with blood drawing, and can also occur at other times such as when she is nauseous or vomiting. She has never been injured and has never been in a situation where she is in danger (such as driving or active). I think these are vagal events but I would like to do a tilt test to see whether she has the typical vagal findings of sinus bradycardia or whether she develops AV concepcion block without a significant change in sinus rate, this could also be a vagal reaction. In that case however we may want to take it more seriously. History of Present Illness Reason for Consultation: First and second-degree AV block Attending Physician: Mai Case MD History of Present Illness This is a 28-year-old woman who presents with a feeling of rapid heart rate and second-degree AV block. She has a lifelong history of what sounds like vagal reactions, ever since she can remember she will have episodes of syncope when she has blood drawn as well as other times when she has typical vagal triggers such as nausea and vomiting. It is never been evaluated so she has never had documentation. She does not believe she is ever had an electrocardiogram done prior to this admission. She also has a more recent history of a feeling of a racing heartbeat. She first noticed this several years ago and intermittently she will feel her heart racing, she does not know the rate but feels that it is beating extremely rapidly and she demonstrated by tapping on her chest rapidly. It sounds as though the episodes come on somewhat gradually and then resolved somewhat gradually and she has thought that they were panic attacks by do not believe these have ever been documented either. They are perhaps on the order of every week to every month but quite irregularly spaced. On the day of admission she was at work when she developed the rapid heart rate, she felt little bit lightheaded but did not have presyncope or syncope or other cardiovascular symptoms such as chest discomfort or shortness of breath. This happened several times over a fairly short period of time and she called her and ultimately thought she should come in the emergency room because it was not typical that she would get recurrent symptoms. In the emergency room she has not had the symptoms of rapid heart rate but she was observed to have first and second-degree AV block. As near as I can tell these episodes of heart block have been asymptomatic. She has also had them following admission. She has noticed no other symptoms such as difficulty with exertion, weight change, edema or orthopnea or PND. Allergies Allergy/AdvReac Type Severity Reaction Status Date / Time No Known Allergies Allergy Verified 04/01/19 22:11 Home Medications Home Medications Medication Instructions Recorded Confirmed Type No Known Home Medications 04/01/19 04/01/19 History Patient History Social History Preferred Language: Ukrainian Communication Ability: Effective Trainer Required: No Beliefs That Will Affect Care: None Current Living Situation: Spouse Feels Safe at Home: Yes Safety Concerns: Feels Safe At This Time Smoking Status: Never smoker Hx Alcohol Use: Yes Hx Substance Use: No Review of Systems Review of Systems: All systems reviewed & are unremarkable except as noted in HPI & below Physical Exam Physical Exam: Constitutional: Alert, cooperative and in no distress. She is overweight. HEENT: Unremarkable Neck: No jugular venous distention, carotid pulses are normal and equal bilaterally without bruits. Pulmonary: Clear to auscultation bilaterally. Cardiac: Regular rhythm with no murmur, gallop or rub. Abdomen: Soft, nontender with normal bowel sounds. Extremities: No edema. Distal pulses intact. Neurologic: No focal findings. Gait is steady. Skin: No rash, ecchymoses or petechiae. Results & Data Vital Signs (Past 12 Hours) Vital Signs Temp Pulse Pulse Resp BP BP Pulse Ox 04/02/19 08:30 36.9 C 63 20 133/76 99 04/02/19 03:00 36.9 C 67 20 134/85 97 04/02/19 02:38 86 18 146/92 H 98 04/02/19 01:00 81 18 135/84 99 04/02/19 00:00 89 18 160/91 H 98 Laboratory Results Cardiac Enzymes 04/01/19 04/02/19 04/02/19 Range/Units 19:02 03:30 09:10 AST 15 (15-37) U/L Troponin I < 0.015 < 0.015 < 0.015 (0-0.045) ng/ml Lipids 04/02/19 Range/Units 03:30 Triglycerides 57 (0-150) mg/dl Cholesterol 153 (0-200) mg/dl HDL Cholesterol 43 mg/dl Cholesterol/HDL Ratio 4 CBC 04/01/19 04/02/19 Range/Units 19:02 03:30 WBC 16.98 H 13.14 H (4.8-10.8) K/uL RBC 4.80 4.51 (4.2-5.4) M/uL Hgb 13.9 13.1 (12.0-16.0) g/dL Hct 40.1 37.8 (37-47) % Plt Count 392 389 (130-400) K/uL Neut # (Auto) 12.73 H 7.02 H (1.4-6.5) K/uL Lymph # (Auto) 3.29 5.15 H (1.2-3.4) K/uL [place] # (Auto) 0.81 H 0.78 H (0.11-0.59) K/uL Eos # (Auto) 0.04 0.11 (0-0.5) K/uL Baso # (Auto) 0.02 0.02 (0-0.2) K/uL Comprehensive Metabolic Panel 04/01/19 04/02/19 Range/Units 19:02 03:30 Sodium 138 138 (136-145) mmol/L Potassium 3.4 L 3.8 (3.5-5.1) mmol/L Chloride 106 107 (98-107) mmol/L Carbon Dioxide 25 29 (21-32) mmol/L BUN 10 7 (7-18) mg/dl Creatinine 0.75 0.64 (0.6-1.2) mg/dl Glucose 90 89 (70-99) mg/dl Calcium 9.6 8.8 (8.5-10.1) mg/dl AST 15 (15-37) U/L ALT 24 (12-78) U/L Alkaline Phosphatase 92 (45-117) U/L Total Protein 8.7 H (6.4-8.2) gm/dl Albumin 3.9 (3.4-5.0) gm/dl Intake and Output 04/01/19 04/02/19 04/02/19 22:59 06:59 14:59 Intake Total 1000 / 1000 Balance 1000 / 1000 Intake: IV 1000 / 1000 Nss 1000ML 1,000 ml @ 999 mls/ 1000 / 1000 hr IV .Q1H1M [facility] Rx#:[id number] Other: # Unmeasured Voids 1 Weight 84 kg 84.6 kg Diagnostic Findings Electrocardiogram: Sinus rhythm with a sinus arrhythmia, first-degree AV block with a AK interval of 270 ms. Telemetry: Sinus rhythm and sinus arrhythmia, periods of second-degree AV block which appears to be Mobitz 1 (AV concepcion). No significant bradycardia or tachycardia. Echocardiogram: PG Care Time/CCT Total # of Minutes Spent Total Time Spent with Patient: Total time spent is greater than 50% in coordination of care (as documented) at patient's floor/unit and/or counseling patient:
--- NOTE | 2019-04-02 12:28 | Hospitalist Progress Note ---
Date of Service April 02, 2019 Assessment & Plan (1) AV block: 28 yo F with no significant PMH presents with concerns of palpitations, SOB, and near syncope found to have 1st degree AV block on EKG in the ED Second degree AV block - Noted on the monitor. Lyme, TSH, Echo normal. - Cardiology consulted - likely chronic. - continue to monitor on Tele Recurrent syncope - cardiology input - history consistent with these being vasovagal in nature - would like to do tilt table test to see if patient has just AV block with no bradycardia in which case she will need intervention. Palpitations/SOB - possibly from being anxious Elevated D-Dimer -Chest CTA and venous doppler negative. Elevated WBC on admission - ? reactive. No fever or sign of infection. - count better today. follow. FEN/GI: HH Diet DVT Prophylaxis: Ambulation. Low Risk Full Code Dispo: PCU Tele (2) Near syncope: (3) Palpitations: Subjective denied shortness of breath, palpitation. still had some right sided chest pain. no associated symptoms. pain positional. no GI symptoms, fever Physical Exam Constitutional: WD/WN, vitals as above Respiratory: normal respiratory effort, lungs clear to auscultation Cardiovascular: RRR, no murmur, no edema Skin: no rashes, warm and dry Psychiatric: A+Ox3, euthymic affect Results & Data Vital Signs (Past 12 Hours) Vital Signs Temp Pulse Pulse Resp BP BP Pulse Ox 04/02/19 11:28 71 18 132/93 99 04/02/19 08:30 36.9 C 63 20 133/76 99 04/02/19 03:00 36.9 C 67 20 134/85 97 04/02/19 02:38 86 18 146/92 H 98 04/02/19 01:00 81 18 135/84 99
--- NOTE | 2019-04-02 14:56 | Electrophysiology Report ---
Date of Service April 02, 2019 Electrophysiology Procedure Electrophysiology Procedure Report 70 degrees head up tilt test After obtaining informed consent for the procedure, the patient was brought to the laboratory having nothing by mouth after midnight. The patient was identified in the laboratory, placed supine on the tilt table and remained supine for 15 minutes. The head of the tilt table was then raised to a 70 head up position where it remained for 30 minutes. The head of the bed was then placed supine and monitoring continued for an additional 15 minutes. During the procedure continuous pulse oximetry and electrocardiography was performed, noninvasive blood pressure monitoring was performed at five-minute intervals. Findings: At baseline she had first-degree AV block and occasional Mobitz 1 AV block with no significant bradycardia, during the test she was in sinus rhythm with intact AV conduction. The heart rate and blood pressure did not fall during the study. Pulse oximetry was unchanged throughout the study. There was no significant change in blood pressure or heart rate when the patient was placed supine. Details of the blood pressure, heart rate and pulse oximetry data are presented on the procedure data sheet. Conclusions: Normal tilt test with no evidence of orthostasis or vasovagal physiology [facility] [place] Electrophysiology codes Indication for Procedure (1) Syncope, vasovagal:
--- NOTE | 2019-04-02 17:03 | Discharge Summary ---
Date of Service April 02, 2019 Admission HPI Per Admitting Provider 28 yo F with PMH IBS presents to [facility] with concerns of palpitations and SOB. Yesterday, pt was in a meeting at work and had an episode of near syncope that was preceded by some tunnel vision around 12:30 after pt had already eaten lunch. Pt felt lightheaded and had some associated palpitations. This would last for about 10 min and self resolve. These palpitations are described as a chest tightness near her R clavicle/breast area and at times associated R biceps cramping. Alleviated by going outside and getting fresh air. No known exacerbations, seems to happen at random. This happened about 3 times yesterday. Last such similar occurrence was in Dec 2018. At that time, pt presented to [facility] and there was some concern over calf pain, which prompted venous doppler study (done at [facility]) that ended up being negative. Pt attributes Dec 2018 incident to stress/anxiety from wedding planning and concerns about her nuvaring, both of which have passed now as she got and is currently on BC. Does not feel anxious or has any recent stressors. Pt had another episode today, which prompted ER presentation, and again in the car ride over to the ED. Pt notes that her R hand and b/l legs were also swollen, but had improved by the time of examination. Associated fatigue and nausea, but pt otherwise denies emesis, TRAVIS, diaphoresis, PND, PRINCE, abd pain, urinary sxs, recent travel or prolonged immobilization. Pt has no other acute concerns or complaints. EKG: Sinus rhythm with sinus arrhythmia and first-degree AV block. Normal QRS, no ST or T wave abnormalities. No previous EKG available for comparison CXR: No active disease in the chest Chest CTA: No evidence of pulmonary embolus in the main, lobar, or proximal segmental pulmonary arteries. ER Course: NSS Family Hx: Father with DM2 (dx last year), Mother with Colon Ca, Grandmother with CHF, Grandmother with Lung Ca and subsequent 5-6 heart attacks after that diagnosis made Social: Denies Tobacco use. Social Alcohol use. Rare MJ use otherwise no illicit drugs. Surgical: Unremarkable Principal Diagnosis Second degree AV block Discharge Exam Constitutional WD/WN, vitals as above Respiratory normal respiratory effort, lungs clear to auscultation Cardiovascular RRR, no murmur, no edema Skin no rashes, warm and dry Psychiatric A+Ox3, euthymic affect Discharge Data Allergies Allergy/AdvReac Type Severity Reaction Status Date / Time No Known Allergies Allergy Verified 04/01/19 22:11 Consultations 04/01/19 22:34 ED Decision to Admit Stat 04/02/19 08:40 Consult Cardiology Routine Procedures Performed Operation Date: 04/02/19 15:00 Actual Procedures p Tilt Table Test - Jasvir Duncan MD Ordered Studies 04/01/19 19:39 CT angio chest PE protocol Stat 04/02/19 03:04 US venous doppler LE BI Urgent 04/02/19 13:55 CL Cath Imgs for PACS use only Routine 04/02/19 15:10 CL Cath Imgs for PACS use only Routine Hospital Course (1) AV block: 28 yo F with no significant PMH presents with concerns of palpitations, SOB, and near syncope found to have 1st degree AV block on EKG in the ED Second degree AV block with h/o recurrent syncope - Noted on the monitor. Lyme, TSH, Echo normal. - Cardiology consulted - AV block likely chronic. - syncope history consistent with these being vasovagal in nature - Tilt tablet test done - negative. - further evaluation as outpatient with loop recorder Palpitations/SOB - loop recorder to be discussed as outpatient to rule out any atrial dysrrythmias. Elevated D-Dimer -Chest CTA and venous doppler negative. Elevated WBC on admission - ? reactive. No fever or sign of infection. - count better today. To follow up with PCP(1wks) and cardiology(2wks) on discharge. (2) Near syncope: (3) Palpitations: Total Time Total Time Spent Total Time Spent (In Minutes): 35 min Discharge Plan Discharge Items Patient Disposition: Home - Self-Care Reason For Visit: PALPITATIONS, NEAR SYNCOPE Discharge Diagnosis: Palpitation - Work up to continue as outpatient Second degree AV block Recurrent Vasovagal syncope Condition on Discharge: Good Activity: Resume your previous activity Non-emergency contact: Primary Care Provider and Technical Sourcing Recruiter Call non-emergency contact if: your symptoms worsen Follow-up/Referrals: Bertha Rivera CRNP [Primary Care Provider] - Diet: Regular Addtl Attending Provider Instructions: Please follow up with Dr Mei at the office ([phone]) in 2wks to get monitor set up so the palpitation and heart rhythm abnormality can be further assessed. Please follow up with family physician in one week Pending Studies at Discharge: No Stand-Alone Forms: [facility] [employer] Smoking Cessation Medications and DC Order Prescriptions: No Action No Known Home Medications RF: 0 Discharge Orders: Discharge Order (Routine); Ordered 04/02/19 Ordered By: Mai Case Admission Data Admit Date/Time: 04/02/19 00:26 Attending Provider: Mai Case Admit Provider: Danish Alexandre Primary Care Provider: Bertha Rivera Other Providers: Rafael Schafer ; Jasvir Duncan
== END 2019-04-02 17:49 | disposition home or self-care (01) ==
LOC: ED 17:01 → 1E 17:01 → SUATTDRO 04-02 00:26 → 1E 04-02 02:38